=== PATIENT | female | born 1935 | race Caucasian/White ===

== ENCOUNTER 2016-07-13 21:24 | Emergency (ER) | payer MEDICARE, OTHER ==
[~2016-07-13 21:24] MED LIST: BETAPACE80 MG PO; CARDIZEM CD120 MG PO; COUMADIN3 MG PO; ELAVIL 25 MG TA25 MG PO; GLUCOPHAGE500 MG PO; LEVAQUIN250 MG PO; LEVOXYL137 MCG PO; THERAGRAN TAB1 EA PO; TOPROL XL25 MG PO; ZESTRIL2.5 MG PO
[2016-07-13 23:03] LABS: HEMOGLOBIN 12.1 gm/dl (12.3-15.3); RED BLOOD COUNT 4.49 M/UL (4.00-5.10); WHITE BLOOD COUNT 12.9 K/UL (4.5-11.0)
[2016-07-13 23:28] LABS: BUN/CREATININE RATIO 21 (0-10)
== END 2016-07-14 02:15 | disposition home or self-care (01) ==
LOC: ER1 21:24
PROVIDERS: Family Medicine
DX: R05 Cough (principal); R79.1 Abnormal coagulation profile; I48.91 Unspecified atrial fibrillation; Z88.0 Allergy status to penicillin; Z88.2 Allergy status to sulfonamides; Z79.84 Long term (current) use of oral hypoglycemic drugs; Z79.899 Other long term (current) drug therapy
CPT/HCPCS: 36415; 71020; 80053; 82550; 82553; 83874; 83880; 84484; 85025; 85610; 85730; 93005; 99285

== ENCOUNTER 2016-08-05 15:59 | Emergency (ER) | payer MEDICARE, OTHER ==
[2016-08-05 17:22] LABS: HEMOGLOBIN 12.3 gm/dl (12.3-15.3); RED BLOOD COUNT 4.59 M/UL (4.00-5.10); WHITE BLOOD COUNT 11.5 K/UL (4.5-11.0)
[2016-08-05 17:46] LABS: BUN/CREATININE RATIO 19 (0-10)
== END 2016-08-05 21:40 | disposition home or self-care (01) ==
LOC: ER1 15:59
PROVIDERS: Physician Assistant
DX: I48.0 Paroxysmal atrial fibrillation (principal); N39.0 Urinary tract infection, site not specified; I10 Essential (primary) hypertension; E11.9 Type 2 diabetes mellitus without complications; J44.9 Chronic obstructive pulmonary disease, unspecified; E07.9 Disorder of thyroid, unspecified; Z95.0 Presence of cardiac pacemaker; Z88.0 Allergy status to penicillin; Z88.2 Allergy status to sulfonamides; Z79.01 Long term (current) use of anticoagulants; Z79.84 Long term (current) use of oral hypoglycemic drugs; Z79.899 Other long term (current) drug therapy
CPT/HCPCS: 36415; 71010; 80053; 81001; 82550; 82553; 83874; 84443; 84484; 85025; 85610; 85730; 93005; 99285